=== PATIENT | female | born 1975 | race Caucasian/White ===

== ENCOUNTER → 2024-01-13 07:16 | Outpatient (REF) | payer BC, SELFPAY | LOC: HWRAD 07:16 | PROVIDERS: ATTENDING PHYSICIAN Nurse Practitioner Family | DX: R10.11 Right upper quadrant pain (principal); R07.81 Pleurodynia | CPT/HCPCS: 71046; 76700 ==

== ENCOUNTER → 2024-03-02 06:57 | Outpatient (REF) | payer BC, SELFPAY | LOC: RAD 06:57 | PROVIDERS: ATTENDING PHYSICIAN Nurse Practitioner Family | DX: R10.11 Right upper quadrant pain (principal); K82.4 Cholesterolosis of gallbladder | CPT/HCPCS: 78226; A9537 ==